=== PATIENT | female | born 1980 | race Hispanic/Latino ===

== ENCOUNTER → 2020-06-17 | Outpatient (REF) | payer BC ==
[~2020-06-17] MED LIST: BUSP5TA PO; GLYB2.5T7 PO; GLYB5TAB6 PO; IBUP1TAB7 PO; PERCOCET PO; PRENTAB7 PO
[2020-06-17 13:26] LABS: BASO # 0.1 10^3/uL (0.0-0.2); BASO % 0.7 % (0.0-1.0); EOS # 0.3 10^3/uL (0.0-0.5); EOS % 3.5 % (0.0-3.0); HEMATOCRIT 43.1 % (36.0-47.0); HEMOGLOBIN 13.9 g/dl (12.0-15.5); LYMPH # 2.8 10^3/uL (1.5-5.0); MEAN CORPUSCULAR HEMOGLOBIN 27.4 pg (27.0-33.0); MEAN CORPUSCULAR HGB CONC 32.3 g/dl (32.0-36.5); MONO # 0.6 10^3/uL (0.0-0.8); MONO % 7.1 % (2.0-8.0); NEUTROPHILS # 4.7 10^3/uL (1.5-8.5); NEUTROPHILS % 55.3 % (36.0-66.0); PLATELET COUNT, AUTOMATED 433 10^3/uL (150-450); RED BLOOD COUNT 5.07 10^6/uL (4.00-5.40); WHITE BLOOD COUNT 8.5 10^3/uL (4.0-10.0)
[2020-06-17 13:38] LABS: HEMOGLOBIN A1c 5.7 %
[2020-06-17 14:02] LABS: ALBUMIN 3.8 GM/DL (3.2-5.2); ALT/SGPT 24 U/L (12-78); BILIRUBIN,TOTAL 0.3 MG/DL (0.2-1.0); BLOOD UREA NITROGEN 16 MG/DL (7-18); CALCIUM LEVEL 9.2 MG/DL (8.5-10.1); CARBON DIOXIDE LEVEL 28 MEQ/L (21-32); CHLORIDE LEVEL 106 MEQ/L (98-107); CHOLESTEROL LEVEL 226 MG/DL (<200); CHOLESTEROL RISK RATIO 4.808 (<5); CREATININE FOR GFR 0.69 MG/DL (0.55-1.30); GLOMERULAR FILTRATION RATE > 60.0 (>58); GLUCOSE, FASTING 88 MG/DL (70-100); HDL CHOLESTEROL 47 MG/DL (>40); LDL CHOLESTEROL 144 MG/DL (<100); NON-HDL-C 179 MG/DL; SODIUM LEVEL 137 MEQ/L (136-145); THYROID STIMULATING HORMONE 0.963 uIU/ML (0.358-3.740); TOTAL PROTEIN 7.5 GM/DL (6.4-8.2); TRIGLYCERIDES LEVEL 174 MG/DL (<150)
== END ==
LOC: M LAB REF 12:25
PROVIDERS: ATTEND Physician Assistant
DX: E66.9 Obesity, unspecified (principal)

== ENCOUNTER → 2020-07-25 | Outpatient (REF) | payer BC | LOC: M LAB REF 17:44 | PROVIDERS: ATTEND Physician Assistant | DX: Z01.419 Encounter for gynecological examination (general) (routine) without abnormal findings (principal) | CPT/HCPCS: 87624; G0123 ==

== ENCOUNTER → 2020-08-29 | Outpatient (CLI) | payer BC ==
--- NOTE | 2020-09-01 10:43 | REP ---
INDICATION: ADDITIOANL VIEW LT BREAST-- OUTSIDE FILMS. COMPARISON: The only comparison is in exam from a mobile unit dated 07/31/2020 TECHNIQUE: Diagnostic digital magnified spot views with DBT left breast and diagnostic ultrasonography FINDINGS: In the upper outer aspect of the left breast there is a smoothly marginated round nodular density which has a notched lucent center. Diagnostic ultrasonography shows no evidence of an abnormality. IMPRESSION: BIRADS/ACR category 2 negative mammogram. There is no evidence of malignant alteration of the left breast. Finding represents a benign intramammary lymph node. The patient letter being requested is M1. RECOMMENDATION: Repeat screening mammography recommended 1 year (for women over 40). <Electronically signed by Ty Penn > 09/01/20 [id number]
== END ==
LOC: M WHC 15:27
PROVIDERS: ATTEND Physician Assistant
DX: R92.8 Other abnormal and inconclusive findings on diagnostic imaging of breast (principal)

== ENCOUNTER → 2020-08-30 | Outpatient (CLI) | payer BC ==
--- NOTE | 2020-08-30 11:04 | REP ---
INDICATION: LOW BACK PAIN. COMPARISON: None. TECHNIQUE: Five views. FINDINGS: Lumbar vertebral body heights are preserved. Alignment is normal. Disc spaces are maintained but there is mild discogenic spurring at L4-5 L3-4 and L2-3 indicating early degenerative disc changes. There is no evidence of spondylolysis or spondylolisthesis. Sacrum appears intact. There is mild spurring at the SI joints bilaterally. There are dystrophic mesenteric deejay calcifications visible in the abdomen. Psoas margins are symmetric. Visualized bowel gas pattern is normal. Degenerative disc spurring is also noted in the lower thoracic spine at T11-12 and T12-L1. IMPRESSION: Mild degenerative disc changes. No acute abnormality. Bilateral SI joint spurring is also noted. <Electronically signed by Real Del Rio > 08/30/20 [id number]
--- NOTE | 2020-08-30 11:06 | REP ---
INDICATION: LOW BACK PAIN. Pain in the left knee. COMPARISON: None. TECHNIQUE: Four views of the left knee are presented. FINDINGS: Four views of the left knee demonstrate medial and patellar compartment articular spurring consistent with early osteoarthritis.. A normal fabella is seen posterolaterally.. No opaque foreign body noted. IMPRESSION: Medial and patellofemoral compartment osteoarthritis. No acute bony abnormality.. <Electronically signed by Real Del Rio > 08/30/20 [id number]
== END ==
LOC: M LAB 10:00
PROVIDERS: ATTEND Physician Assistant
DX: M51.36 Other intervertebral disc degeneration, lumbar region (principal)

== ENCOUNTER → 2021-10-27 | Outpatient (REF) | LOC: M LAB 15:04 | PROVIDERS: ATTEND Nurse Practitioner Adult Health | DX: Z00.00 Encounter for general adult medical examination without abnormal findings (principal) ==

== ENCOUNTER → 2021-10-29 | Outpatient (REF) | LOC: M RAD 15:09 | PROVIDERS: ATTEND Nurse Practitioner Adult Health | DX: Z00.00 Encounter for general adult medical examination without abnormal findings (principal) ==

== ENCOUNTER → 2021-11-02 | Outpatient (REF) | LOC: M LAB 16:28 | PROVIDERS: ATTEND Nurse Practitioner Adult Health | DX: Z00.00 Encounter for general adult medical examination without abnormal findings (principal) ==

== ENCOUNTER → 2022-02-03 | Outpatient (CLI) | payer BC ==
[2022-02-03 08:41] LABS: HEMOGLOBIN 12.6 g/dl (12.0-15.5); MEAN CORPUSCULAR HEMOGLOBIN 26.6 pg (27.0-33.0); MEAN CORPUSCULAR HGB CONC 31.5 g/dl (32.0-36.5); MEAN CORPUSCULAR VOLUME 84.4 fl (80.0-96.0); PLATELET COUNT, AUTOMATED 424 10^3/uL (150-450); RED BLOOD COUNT 4.74 10^6/uL (4.00-5.40); WHITE BLOOD COUNT 9.5 10^3/uL (4.0-10.0)
[2022-02-03 09:16] LABS: HEMOGLOBIN A1c 5.4 % (4.0-6.0)
[2022-02-03 09:52] LABS: ALBUMIN 3.6 G/DL (3.2-5.2); ALT/SGPT 21 U/L (7.0-40); BILIRUBIN,TOTAL 0.5 MG/DL (0.3-1.2); BLOOD UREA NITROGEN 15 MG/DL (9-23); CARBON DIOXIDE LEVEL 25 MMOL/L (20-31); CHLORIDE LEVEL 103 MMOL/L (98-107); CHOLESTEROL LEVEL 227 MG/DL (<200); CHOLESTEROL RISK RATIO 4.79 (<5); CREATININE FOR GFR 0.62 MG/DL (0.55-1.30); GLOMERULAR FILTRATION RATE > 60.0 (>58); GLUCOSE, FASTING 93 MG/DL (60-100); HDL CHOLESTEROL 47.3 MG/DL (>40); LDL CHOLESTEROL 129.1 MG/DL (<100); NON-HDL-C 180 MG/DL; POTASSIUM SERUM 4.4 MMOL/L (3.5-5.1); SODIUM LEVEL 138 MMOL/L (136-145); THYROID STIMULATING HORMONE 1.469 uIU/ML (0.55-4.78); TRIGLYCERIDES LEVEL 253 MG/DL (<150)
[2022-02-03 13:51] LABS: HEPATITIS C VIRUS ABY INDEX 0.1 INDEX (<0.8); HIV 1&2 SCREEN CENTAUR NEGATIVE (NEGATIVE)
== END ==
LOC: M LAB 07:46
PROVIDERS: ATTEND Internal Medicine Infectious Disease
DX: E66.3 Overweight (principal); Z11.59 Encounter for screening for other viral diseases; Z13.1 Encounter for screening for diabetes mellitus; R76.11 Nonspecific reaction to tuberculin skin test without active tuberculosis

== ENCOUNTER → 2022-03-05 | Outpatient (REF) | LOC: M EMP 08:48 | PROVIDERS: ATTEND Family Medicine | DX: Z11.52 Encounter for screening for COVID-19 (principal) ==

== ENCOUNTER → 2022-03-07 | Outpatient (REF) | LOC: M LABSMTC 09:46 | PROVIDERS: ATTEND Pediatrics | DX: Z00.00 Encounter for general adult medical examination without abnormal findings (principal) ==

== ENCOUNTER → 2022-03-09 | Outpatient (REF) | LOC: M LABSMTC 11:10 | PROVIDERS: ATTEND Family Medicine | DX: Z11.52 Encounter for screening for COVID-19 (principal) ==

== ENCOUNTER → 2022-11-09 | Outpatient (REF) | LOC: M LAB 10:25 | PROVIDERS: ATTEND Nurse Practitioner Adult Health | DX: Z00.00 Encounter for general adult medical examination without abnormal findings (principal) ==

== ENCOUNTER 2023-01-25 09:07 | Emergency (ER) | payer OTHER, BC ==
[~2023-01-25] VITALS: Ht 165.1 cm; Wt 118.9 kg
[2023-01-25 09:08] VITALS: BP 133/76; TEMP 98.5; O2SAT 97
[2023-01-25] MEDS ORDERED: LIDOCAINE 4% CREAM 5GM (LMX4) TOP ONE (11:10)
[2023-01-25] MEDS ORDERED: KETOROLAC 30 MG/ML 1ML VIAL IM ONE (11:10)
== END 2023-01-25 11:59 | disposition home or self-care (01) ==
LOC: M ED 09:07
DX: S79.912A Unspecified injury of left hip, initial encounter (principal); W01.198A Fall on same level from slipping, tripping and stumbling with subsequent striking against other object, initial encounter; Y92.233 Cafeteria of hospital as the place of occurrence of the external cause; Y99.0 Civilian activity done for income or pay; M16.12 Unilateral primary osteoarthritis, left hip
CPT/HCPCS: 73502; 96372; 99282; J1885

== ENCOUNTER → 2023-02-20 | Outpatient (REF) | LOC: M EMP 09:21 | PROVIDERS: ATTEND Family Medicine | DX: Z11.52 Encounter for screening for COVID-19 (principal) ==

== ENCOUNTER → 2023-03-18 | Outpatient (REF) ==
[2023-03-18 09:46] LABS: RSV AMPLIFICATION NEGATIVE (NEGATIVE)
== END ==
LOC: M EMP 08:49
PROVIDERS: ATTEND Family Medicine
DX: Z11.59 Encounter for screening for other viral diseases (principal)

== ENCOUNTER → 2023-03-23 | Outpatient (REF) | LOC: M EMP 07:39 | PROVIDERS: ATTEND Family Medicine | DX: Z11.52 Encounter for screening for COVID-19 (principal) ==

== ENCOUNTER → 2024-04-18 | Outpatient (REF) | LOC: M EMP 09:13 | PROVIDERS: ATTEND Family Medicine | DX: Z11.52 Encounter for screening for COVID-19 (principal) ==

== ENCOUNTER → 2024-07-09 | Outpatient (REF) | LOC: M EMP 09:22 | PROVIDERS: ATTEND Family Medicine | DX: Z01.89 Encounter for other specified special examinations (principal) ==

== ENCOUNTER → 2024-12-17 | Outpatient (REF) | LOC: M EMP 09:26 | PROVIDERS: ATTEND Family Medicine | DX: Z01.89 Encounter for other specified special examinations (principal) ==